=== PATIENT | male | born 1970 | race American Indian/Alaskan Native ===

== ENCOUNTER 2020-03-26 05:53 | Day surgery (SDC) | payer OTHER ==
[2020-03-26] MEDS ORDERED: MIDAZOLAM 2 MG/2 ML INJ IV NR (06:00)
[2020-03-26] MEDS ORDERED: fentaNYL 100 MCG/2 ML INJ IV PRN ×2 (06:00→08:28)
[2020-03-26] MEDS ORDERED: ceFAZolin/Water 2 GM/20 ML 2 GM/20 ML SYRINGE IV NR (06:00)
[2020-03-26] MEDS ORDERED: SODIUM CHLORIDE 0.9% 1000 ML 1,000 ML IV SCH (06:00)
[2020-03-26] MEDS ORDERED: BACTERIOSTATIC SODIUM CHLORIDE 0.9% 30 ML VIAL INFILTRATI ONE (06:00)
[2020-03-26 07:33] LABS: Hemoglobin 11.3 gm/dl (11.8-15.2); Mean Corpuscular HGB Conc 34 % (32-34); Mean Corpuscular Volume 86 fl (84-94); Platelet Count 228 K/mm3 (140-440); Red Blood Count 3.85 M/mm3 (3.65-5.03); Red Cell Distribution Width 16.6 % (13.2-15.2)
[2020-03-26] MEDS ORDERED: SODIUM CHLORIDE 0.9% 250ML 0 ML ONE (07:35)
[2020-03-26] MEDS ORDERED: rifAMPin 600 MG VIAL ONE (07:35)
[2020-03-26] MEDS ORDERED: HEPARIN 10,000 UNITS/10 ML VIAL ONE (07:35)
[2020-03-26] MEDS ORDERED: SODIUM CHLORIDE 0.9% 500 ML 500 ML ONE (07:35)
--- NOTE | 2020-03-26 07:35 | Anesthesia Consultation ---
Anesthesia Consult and Med Hx Date of service: 03/26/20 - Airway Anesthetic Teeth Evaluation: Good ROM Head & Neck: Adequate Mental/Hyoid Distance: Adequate Mallampati Class: Class III Intubation Access Assessment: Possibly Difficult - Pulmonary Exam CTA: Yes - Cardiac Exam Cardiac Exam: RRR - Pre-Operative Health Status ASA Pre-Surgery Classification: ASA3 Proposed Anesthetic Plan: MAC Nerve Block: Supraclavicular - Pulmonary Hx Smoking: No Hx Respiratory Symptoms: No - Cardiovascular System Hx Hypertension: Yes (will give home dose carvedilol this morning; took amlodipine last night) Hx Heart Attack/AMI: No (hx CHF; EF 60%, no sig valve lesions on TTE 11/2019) Hx Percutaneous Transluminal Coronary Angioplasty (PTCA): No - Central Nervous System CVA: No Hx Psychiatric Problems: No - Gastrointestinal Hx Gastroesophageal Reflux Disease: Yes (well controlled; will give home dose omeprazole in preop) - Endocrine Hx End Stage Renal Disease: Yes (last HD 03/25/2020) Hx Liver Disease: No Hx Non-Insulin Dependent Diabetes: Yes Hx Thyroid Disease: No - Hematic Hx Anemia: Yes - Other Systems Hx Obesity: Yes (BMI 38) - Additional Comments Anesthesia Medical History Comments: No hx anesthetic complications.
[2020-03-26] MEDS ORDERED: BUPIVACAINE/PF (0.5%) 5 MG/1 ML 10 ML VIAL INFILTRATI ONE (07:36)
--- NOTE | 2020-03-26 07:36 | Anesthesia Day of Surgery ---
Anesthesia Day of Surgery - Day of Surgery Patient Examined: Yes Patient H&P Reviewed: Yes Patient is NPO: Yes Beta Blockers: Yes (carvedilol this morning)
[2020-03-26] MEDS ORDERED: LIDOCAINE (1%) 10 MG/1 ML VIAL 20 ML MDV ONE (07:40)
[2020-03-26] MEDS ORDERED: BUPIVACAINE/PF (0.5%) 5 MG/1 ML 30 ML VIAL INFILTRATI ONE (07:40)
[2020-03-26 07:57] LABS: Calcium 9.4 mg/dL (8.4-10.2)
[2020-03-26] MEDS ORDERED: fentaNYL 100 MCG/2 ML INJ ONE (07:57)
[2020-03-26] MEDS ORDERED: LIDOCAINE MPF (2%) 20 MG/1 ML VIAL 5 ML ONE (07:57)
[2020-03-26] MEDS ORDERED: KETAMINE/STERILE WATER 50 MG/ML SYRINGE ONE (07:58)
[2020-03-26] MEDS ORDERED: propofoL 200 MG/20 ML VIAL IV ONE (07:58)
[2020-03-26] MEDS ORDERED: PHENYLEPHRINE/NS 1,000 MCG/10 ML SYRINGE (OR USE) IV ONE (08:00)
[2020-03-26] MEDS ORDERED: GLYCOPYRROLATE 0.4 MG/2 ML INJ ONE (08:00)
[2020-03-26] MEDS ORDERED: HEPARIN 10,000 UNITS/10 ML VIAL IR ONE (09:16)
[2020-03-26] MEDS ORDERED: SODIUM CHLORIDE 0.9% IRR 1,500 ML BOTTLE IR ONE (09:17)
[2020-03-26] MEDS ORDERED: SODIUM CHLORIDE 0.9% 500 ML IVPB IRRIGATION ONE (09:17)
--- NOTE | 2020-03-26 10:21 | Short Stay Summary ---
Short Stay Documentation Date of service: 03/26/20 Narrative H&P: See H&P - History H&P: obtained from office - Allergies and Medications Current Medications: Allergies No Known Allergies Allergy (Unverified 03/20/20 16:11) Home Medications Medication Instructions Recorded Confirmed Last Taken Type AtorvaSTATin [Lipitor] 20 mg PO QHS 03/26/20 03/26/20 03/24/20 History Omeprazole 40 mg PO BID 03/26/20 03/26/20 03/26/20 07:35 History Sevelamer Carbonate [Renvela] 1,600 mg PO TID 03/26/20 03/26/20 03/24/20 History Terazosin (Nf) [Hytrin (Nf)] 5 mg PO DAILY 03/26/20 03/26/20 03/24/20 History amLODIPine [Norvasc] 10 mg PO DAILY 03/26/20 03/26/20 03/24/20 History carvediloL [Coreg] 25 mg PO BID 03/26/20 03/26/20 03/26/20 07:35 History glipiZIDE [Glucotrol] 10 mg PO BID 03/26/20 03/26/20 03/24/20 History Active Medications Fentanyl (Sublimaze) 50 mcg IV Q5MIN PRN PRN Reason: Pain , Severe (7-10) Stop: 03/26/20 23:00 Cefazolin Sodium (Ancef/Sterile Water 2 Gm/20 Ml) 2 gm in 20 mls @ 80 mls/hr IV PREOP NR; Protocol Stop: 03/26/20 23:59 Sodium Chloride (Nacl 0.9% 1000 Ml) 1,000 mls @ 42 mls/hr IV DIRECT AHSAN Stop: 03/26/20 23:59 Last Admin: 03/26/20 07:30 Dose: 42 mls/hr Documented by: Midazolam HCl (Versed) 2 mg IV PREOP NR Stop: 03/26/20 23:00 Last Admin: 03/26/20 08:05 Dose: 2 mg Documented by: - Brief post op/procedure progress note Date of procedure: 03/26/20 Pre-op diagnosis: End-Stage Renal Disease Post-op diagnosis: same Procedure: Creation of Left Satinder Fistula Anesthesia: MAC, regional Findings: Palpable thrill at the completion of the case. Surgeon: TAYA MIXON Estimated blood loss: minimal Pathology: none Condition: stable - Disposition Condition at discharge: Good Disposition: DC-01 TO HOME OR SELFCARE Short Stay Discharge Plan Activity: other (No heavy lifting with left arm for 2 weeks. Use stress ball as often as possible with left hand.) Wound: open to air, keep clean and dry, other (Okay to wash the wound with soap and water but do not soak in water for 2 weeks.) Follow up with: TAYA MIXON MD [Staff Physician] - 14 Days Prescriptions: HYDROcodone/APAP 7.5-325 [[place] 7.5/325] 1 each PO Q6HR PRN #40 tablet PRN Reason: Pain
--- NOTE | 2020-03-26 10:24 | Operative Report ---
Operative Report Operative Report: Date of procedure: 03/26/2020 Pre-operative diagnosis: End-Stage Renal Disease Post-operative diagnosis: End-Stage Renal Disease Procedure(s): Creation of Left Satinder Fistula Surgeon: Jere Castañeda MD Statistical Geneticist: None Anesthesia: Regional Block EBL: Minimal Counts: Correct Complications: None Condition: Stable Findings: Successful creation of left arm AV fistula Specimen: None Indication: The patient is a 49-year-old male with a history of end-stage renal disease who is currently on hemodialysis through a right internal jugular permacath. He is in need of long-term dialysis access and has adequate vein for creation of an arteriovenous fistula. He was given the risk, benefits, and alternative procedures and consented to the procedure. Description of Procedure: The patient was brought to the operating room and laid in supine position. After he was adequately sedated his left arm was prepped and draped in normal sterile fashion. Longitudinal incision was then created on the distal wrist centered over the cephalic vein and a second incision was created in longitud inal fashion over the radial artery. The radial artery was dissected out circumferentially and controlled with vessel loops. The cephalic vein was then dissected out circumferentially, ligating side branches and dividing them, and then a tunnel was created to transpose it over to the radial artery. A 3 Mac was then advanced through the cephalic vein proximally to ensure patency. The vein was then flushed with heparinized saline and control of the bulldog clamp. The radial artery vessel loops were put on tension occluding flow, and then an 11 blade and Weems scissors used to create an arteriotomy. An end-to-side anastomosis created between the cephalic vein and the radial artery using a single 6-0 Prolene in running fashion. Prior to completing the anastomosis I flushed the artery both retrograde and antegrade and advanced a 3 Mac into the proximal portion of the artery to break the spasm. I then completed the anastomosis and removed all clamps allowing flow into the fistula which had an excellent thrill. Hemostasis within the wound was achieved with Magda. Once hemostasis was achieved the wound was closed in 2 layers using a 3-0 Vicryl running fashion in the deep dermal layer, 4-0 Monocryl in a running fashion in the subcuticular layer, and Dermabond as a dressing. The patient tolerated the procedure well, all sponge, needle, and instrument counts were correct, the patient was taken to recovery in stable condition.
[2020-03-26 12:00] VITALS: BP 132/78
--- NOTE | 2020-03-26 14:01 | Post Anesthesia Evaluation ---
- Post Anesthesia Evaluation Patient Participated: Yes Airway Patent: Yes Stable Respiratory Function: Yes Nausea/Vomiting: No Temp > 96.8F: Yes Pain Manageable: Yes Adequeate Hydration: Yes Anesthesia Complications: No Other Comments: Left arm in sling.
== END 2020-03-26 05:54 | disposition home or self-care (01) ==
LOC: OR 05:53
PROVIDERS: ATTEND Surgery Vascular Surgery
DX: I13.2 Hypertensive heart and chronic kidney disease with heart failure and with stage 5 chronic kidney disease, or end stage renal disease (principal); E11.22 Type 2 diabetes mellitus with diabetic chronic kidney disease; I50.9 Heart failure, unspecified; N18.6 End stage renal disease; D64.9 Anemia, unspecified; E78.00 Pure hypercholesterolemia, unspecified; K21.9 Gastro-esophageal reflux disease without esophagitis; Z99.2 Dependence on renal dialysis; Z72.89 Other problems related to lifestyle; Z98.890 Other specified postprocedural states; Z79.899 Other long term (current) drug therapy
CPT/HCPCS: 36415; 36821; 80048; 82962; 85027; J0690; J1644; J2250; J2370; J2704; J3010; J7030; J7040; J3490; J7050